=== PATIENT | female | born 1965 | race Caucasian/White ===

== ENCOUNTER 2016-11-07 20:28 | Emergency (ER) | payer OTHER ==
[~2016-11-07] VITALS: Ht 170.2 cm; Wt 68.8 kg
[~2016-11-07 20:28] MED LIST: CIPRO500 MG PO; COLACE100 MG PO; MILK OF MAGN PO; NEXIUM40 MG PO; PRILOSEC OTC20 MG PO; REGLAN10 MG PO; TRAMADOL HCL50 MG PO; ULTRAM50 MG PO
[2016-11-07 20:58] LABS: HEMATOCRIT 41.2 % (36.0-46.0); MCH 30.2 PG (29.0-34.0); MEAN PLAT.VOLUME 9.4 uM^3 (9.5-12.4); PLATELET COUNT 294 K/uL (156-360); RBC DIS.WIDTH-CV 12.9 % (11.8-14.6); RBC DIS.WIDTH-SD 42.1 % (39-53); RED BLOOD COUNT 4.63 M/uL (3.80-5.20); WHITE BLOOD COUNT 7.7 K/uL (4.1-10.2)
[2016-11-07 21:02] LABS: ADD MIUA? YES; BILIRUBIN NEGATIVE; BLOOD SMALL; COLOR YELLOW ((YELLOW)); GLUCOSE (STRIP) NEGATIVE; KETONES NEGATIVE; LEUKOCYTES NEGATIVE; NITRITE NEGATIVE; PROTEIN (STRIP) 30; SPECIFIC GRAVITY 1.029 (1.000-1.030); UROBILINOGEN 0.2 MG/DL (0.2-1.0)
[2016-11-07 21:11] LABS: CHLORIDE 104 mEq/L (99-109); POTASSIUM 3.7 mEq/L (3.7-5.4); SODIUM 140 mEq/L (136-147)
[2016-11-07 21:13] LABS: GLUCOSE 93 mg/dL (70-99)
[2016-11-07 21:14] LABS: BACTERIA NONE SEEN /HPF; EPITHELIAL CELLS RARE /HPF; MUCUS TRACE /LPF; RED BLOOD CELLS 0-5 /HPF (0-5); UCUL ADDED? NO; WHITE BLOOD CELLS 0-5 /HPF (0-5)
[2016-11-07 21:14] LABS: ANION GAP 13 MEQ/L (2-14)
[2016-11-07 21:15] LABS: TOTAL BILIRUBIN 0.6 mg/dL (0.0-1.0)
[2016-11-07 21:16] LABS: ALKALINE PHOSPHATASE 75 IU/L (3-129)
[2016-11-07 21:17] LABS: GFR ESTIMATE (CALCULATED) 56 mL/min/
[2016-11-07 21:18] LABS: UREA NITROGEN (BUN) 15 mg/dL (9-23)
[2016-11-07 21:27] LABS: QUANTITATIVE HCG < 4.0 MIU/ML
[2016-11-07 22:44] LABS: LIPASE 209 U/L (1.0-51.0)
[2016-11-08] MEDS ORDERED: NORCO 7.5/321 TABLET PO
[2016-11-08] MEDS ORDERED: MOTRIN600 MG PO
[2016-11-08 00:21] VITALS: BP 129/81
== END 2016-11-08 00:25 | disposition home or self-care (01) ==
LOC: EME 20:28
DX: N83.202 Unspecified ovarian cyst, left side (principal); R10.31 Right lower quadrant pain; K21.9 Gastro-esophageal reflux disease without esophagitis
CPT/HCPCS: 74177; 80053; 81003; 83690; 84702; 85025; 85027; 99281; 99284; J1885; J7030

== ENCOUNTER 2017-10-02 21:56 | Emergency (ER) | payer OTHER ==
[~2017-10-02] VITALS: Ht 170.2 cm; Wt 72.0 kg
[~2017-10-02 21:56] MED LIST changes: +MOTRIN600 MG PO; +NORCO 7.5/321 TABLET PO
[2017-10-02 22:24] LABS: HEMATOCRIT 40.1 % (36.0-46.0); HEMOGLOBIN 14.1 G/DL (11.9-15.5); MCH 32.3 PG (29.0-34.0); MCHC 35.2 G/DL (30.0-36.0); MCV 91.8 FL (83-99); PLATELET COUNT 288 K/uL (156-360); RBC DIS.WIDTH-SD 40.6 % (39-53); RED BLOOD COUNT 4.37 M/uL (3.80-5.20); WHITE BLOOD COUNT 10.2 K/uL (4.1-10.2)
[2017-10-02 22:34] LABS: ALBUMIN 4.5 g/dL (3.2-4.8); CHLORIDE 109 mEq/L (99-109); POTASSIUM 3.9 mEq/L (3.7-5.4); SODIUM 144 mEq/L (136-147)
[2017-10-02 22:37] LABS: GLUCOSE 139 mg/dL (70-99); TOTAL PROTEIN 7.5 g/dL (6.4-8.3)
[2017-10-02 22:39] LABS: TOTAL BILIRUBIN 0.4 mg/dL (0.0-1.0)
[2017-10-02 22:40] LABS: ALKALINE PHOSPHATASE 118 IU/L (3-129); CREATININE 1.1 mg/dL (0.6-1.3); GFR ESTIMATE (CALCULATED) 55 mL/min/
[2017-10-02 22:42] LABS: AST (GOT) 25 IU/L (2-34); DIRECT BILIRUBIN 0.1 mg/dL (0.0-0.3); UREA NITROGEN (BUN) 19 mg/dL (9-23)
[2017-10-02 22:43] LABS: ALT (GPT) 25 IU/L (3-49)
[2017-10-02 22:44] LABS: LIPASE 55 U/L (1.0-51.0)
[2017-10-02 23:06] LABS: TROP-I INTERPRETATION NEGATIVE; TROPONIN-I < 0.01 ng/mL (0.0-0.30)
[2017-10-02] MEDS ORDERED: PREDNISONE20 MG PO (23:06)
[2017-10-02] MEDS ORDERED: VALACYCLOVIR1000 MG PO (23:06)
[2017-10-02] MEDS ORDERED: ARTIFICIAL TEAR1510 BOTH EYES (23:07)
[2017-10-03 00:16] VITALS: BP 142/100
== END 2017-10-03 00:18 | disposition home or self-care (01) ==
LOC: EME 21:56
DX: G51.0 Bell's palsy (principal); B00.1 Herpesviral vesicular dermatitis; K21.9 Gastro-esophageal reflux disease without esophagitis; K58.9 Irritable bowel syndrome, unspecified; Z90.49 Acquired absence of other specified parts of digestive tract; Z88.6 Allergy status to analgesic agent
CPT/HCPCS: 70450; 71046; 80048; 80076; 83690; 84484; 85027; 93005; 99281; 99283; J7512

== ENCOUNTER 2017-11-03 08:15 | Emergency (ER) | payer OTHER ==
[~2017-11-03] VITALS: Ht 170.2 cm; Wt 72.5 kg
[~2017-11-03 08:15] MED LIST changes: +ARTIFICIAL TEAR1510 BOTH EYES; +PREDNISONE20 MG PO; +VALACYCLOVIR1000 MG PO
[2017-11-03 08:59] LABS: BASOPHIL (%) 0.6 % (0-1); BASOPHIL COUNT 0.1 K/uL (0-0.1); EOSINOPHIL (%) 3.4 % (0-5); EOSINOPHIL COUNT 0.4 K/uL (0-0.3); HEMOGLOBIN 13.7 G/DL (11.9-15.5); IMMATURE GRANULOCYTE (%) 0.9 % (0.0-0.7); LYMPHOCYTE (%) 19.8 % (15-42); LYMPHOCYTE COUNT 2.2 K/uL (1.0-2.8); MCH 32.1 PG (29.0-34.0); MCHC 34.3 G/DL (30.0-36.0); MCV 93.7 FL (83-99); MONOCYTE (%) 10.8 % (3-12); MONOCYTE COUNT 1.2 K/uL (0-0.8); NEUTROPHIL (%) 64.5 % (45-76); PLATELET COUNT 403 K/uL (156-360); RBC DIS.WIDTH-CV 13.2 % (11.8-14.6); RBC DIS.WIDTH-SD 45.5 % (39-53); RED BLOOD COUNT 4.27 M/uL (3.80-5.20); WHITE BLOOD COUNT 10.9 K/uL (4.1-10.2)
[2017-11-03 09:16] LABS: CHLORIDE 105 mEq/L (99-109); POTASSIUM 4.3 mEq/L (3.7-5.4); SODIUM 142 mEq/L (136-147)
[2017-11-03 09:17] LABS: GLUCOSE 87 mg/dL (70-99)
[2017-11-03 09:21] LABS: CREATININE 1.1 mg/dL (0.6-1.3); GFR ESTIMATE (CALCULATED) 55 mL/min/
[2017-11-03 09:22] LABS: UREA NITROGEN (BUN) 16 mg/dL (9-23)
[2017-11-03 10:20] VITALS: BP 126/80
== END 2017-11-03 10:20 | disposition home or self-care (01) ==
LOC: EME 08:15
PROVIDERS: Emergency Medicine
DX: R51 Headache (principal); J32.9 Chronic sinusitis, unspecified; H53.8 Other visual disturbances
CPT/HCPCS: 70450; 80048; 85025; 99281; 99283

== ENCOUNTER → 2018-04-10 | Outpatient (CLI) | payer OTHER | END | disposition home or self-care (01) | LOC: CDC 15:44 | DX: Z01.810 Encounter for preprocedural cardiovascular examination (principal); K43.9 Ventral hernia without obstruction or gangrene | CPT/HCPCS: 93000 ==